=== PATIENT | female | born 1945 | race Caucasian/White ===

== ENCOUNTER 2018-10-09 15:29 | Outpatient (REF) | payer MEDICARE, BC, SELFPAY | END 2018-10-09 15:49 | LOC: NCHCN 15:29 | PROVIDERS: PCP Internal Medicine; Visit Provider Registered Nurse | DX: R82.90 Unspecified abnormal findings in urine (principal); R39.89 Other symptoms and signs involving the genitourinary system | CPT/HCPCS: 87077; 87086; 87186 ==

== ENCOUNTER 2020-04-15 18:13 | Outpatient (REF) | payer MEDICARE, BC, SELFPAY ==
[2020-04-15 20:39] LABS: Anion Gap 7.9 mmol/L (3-11); BUN 17 mg/dL (7-18); CO2 31.1 mmol/L (21.0-32.0); CREATININE 0.75 mg/dL (0.55-1.02); Calcium 8.8 mg/dL (8.5-10.1); Chloride 102 mmol/L (98-107); Glucose 100 mg/dL (74-106); Potassium 3.5 mmol/L (3.5-5.1); Sodium 141 mmol/L (136-145)
== END 2020-04-15 18:33 ==
LOC: NCHCN 18:13
PROVIDERS: PCP Internal Medicine; Visit Provider Internal Medicine
DX: I10 Essential (primary) hypertension (principal)
CPT/HCPCS: 80048

== ENCOUNTER 2020-12-02 14:54 | Outpatient (REF) | payer MEDICARE, BC, SELFPAY ==
[2020-12-02 20:56] LABS: Anion Gap 9.6 mmol/L (3-11); BUN 30 mg/dL (7-18); CO2 30.4 mmol/L (21.0-32.0); CREATININE 0.9 mg/dL (0.55-1.02); Calcium 9.2 mg/dL (8.5-10.1); Chloride 104 mmol/L (98-107); Glucose 133 mg/dL (74-106); Potassium 3.6 mmol/L (3.5-5.1); Sodium 144 mmol/L (136-145)
[2020-12-02 21:02] LABS: Hemoglobin A1C 6.8 % (<5.7)
== END 2020-12-02 14:55 | disposition home or self-care (01) ==
LOC: NCHCN 14:54
PROVIDERS: PCP Internal Medicine; Visit Provider Internal Medicine
DX: E11.9 Type 2 diabetes mellitus without complications (principal); I10 Essential (primary) hypertension
CPT/HCPCS: 80048; 83036

== ENCOUNTER 2020-12-09 16:47 | Outpatient (REF) | payer MEDICARE, BC, SELFPAY ==
[2020-12-09 20:59] LABS: COMMENT (LAB VIEW ONLY) 94.55 mg/dL
== END 2020-12-09 16:48 | disposition home or self-care (01) ==
LOC: NCHCN 16:47
PROVIDERS: PCP Internal Medicine; Visit Provider Internal Medicine
DX: E11.9 Type 2 diabetes mellitus without complications (principal); I10 Essential (primary) hypertension
CPT/HCPCS: 82043; 82570

== ENCOUNTER 2021-09-07 18:52 | Outpatient (REF) | payer MEDICARE, BC, SELFPAY ==
[2021-09-07 18:31] LABS: Abs Immature Grans 0.02 10^3/uL (0.0-0.06); Absolute Basophil Count 0.05 10^3/uL (0.0-0.2); Absolute Eosinophil Count 0.15 10^3/uL (0.0-0.7); Absolute Monocyte Count 0.52 10^3/uL (0.1-0.8); Absolute Neutrophil Count 4.14 10^3/uL (1.2-6.7); Basophils % 0.7; Eosinophils % 2.2; HCT 36.5 % (36.0-46.0); HGB 11.7 g/dL (11.2-15.7); Immature Grans % 0.3; Lymphocytes % 26.9; MCH 31.2 pg (27.0-33.0); MCHC 32.1 % (32.0-36.0); MCV 97.3 fL (80-95); MPV 10.2 fL (8.0-11.0); Monocytes % 7.8; Neutrophils % 62.1; Nucleated RBC 0 %; Platelet Count 349 10^3/uL (130-400); RBC 3.75 10^6/uL (3.93-5.22); RDW 12.8 % (11.7-14.6); RDW-SD 45.7 fL; WBC 6.68 10^3/uL (4.4-10.8)
[2021-09-07 18:54] LABS: ALT 24 U/L (14-59); AST 20 U/L (15-37); Albumin 3.5 g/dL (3.4-5.0); Alkaline Phosphatase 99 U/L (46-116); Anion Gap 4.3 mmol/L (3-11); BUN 25 mg/dL (7-18); Bilirubin, Total 0.4 mg/dL (0.2-1.0); CO2 33.7 mmol/L (21.0-32.0); CREATININE 0.8 mg/dL (0.55-1.02); Calcium 9.5 mg/dL (8.5-10.1); Chloride 106 mmol/L (98-107); Glucose 118 mg/dL (74-106); Potassium 3.8 mmol/L (3.5-5.1); Sodium 144 mmol/L (136-145); TSH (W/Ref FT4) 1.45 uIU/mL (0.36-3.74)
== END 2021-09-07 18:53 | disposition home or self-care (01) ==
LOC: LBN 18:52
PROVIDERS: PCP Internal Medicine; Visit Provider Internal Medicine
DX: R63.4 Abnormal weight loss (principal); R74.8 Abnormal levels of other serum enzymes; I10 Essential (primary) hypertension; E87.6 Hypokalemia
CPT/HCPCS: 80053; 84443; 85025

== ENCOUNTER 2023-02-01 08:08 | Outpatient (REF) | payer MEDICARE, BC, SELFPAY ==
--- OUTSIDE RECORDS SUMMARY | 2023-02-01 08:12 | XMS_ITS | CCD ---
Author Name Unknown Address [address] [place] [address] [phone] Organization Unknown Address [address] [place] [address] [phone] Care Team Providers Care Policy Specialist Name Role Phone RUTHIE THORNTON Attending Physician [phone] RUTHIE THORNTON Rounding (Secondary) Physician [phone] Vital Signs Unknown or Not Available. Allergies Allergy Code Allergy Type Reaction Status TAPE 0 Allergy to substance Acti ve No Known Drug Allergies 0 No known drug allergies Active Procedures Unknown or Not Available. History of Immunizations Unknown or Not Available. Problems Problem Code Start Date Resolved Date Status Closed humeral shaft fracture 38817627 Active Diabetes 2 64781176 Active HTN 33729343 Active Results Unknown or Not Available. Active Medications Unknown or Not Available. Medications Administered During Visit Unknown or Not Available. Encounters Encounter Diagnosis Diagnosis Code Start Date Abnormal findings on diagnos tic imaging of other specified body structures R9389 08/15/2021 Social History Smoking Status Code Start Date End Date Never smoker [id number] Patient Decision Aids Unknown or Not Available. Discharge Instructions You were admitted to [facility] on 08/15/2021 11:16 with a principal diagnosis of Abnormal findings on diagnostic imaging of other specified body structures You were discharged from [facility] on 08/15/2021 11:18 Should you have any questions prior to discharge, please contact a member of your healthcare team. If you have left the hospital and have any questions, please contact your primary care physician. Chief Complaint and Reason For Visit Unknown or Not Available. Function Status Unknown or Not Available. Plan of Care Unknown or Not Available. Referral/Transition of Care Unknown or Not Available.
--- OUTSIDE RECORDS SUMMARY | 2023-02-01 08:12 | XMS_ITS | CCD ---
Author Name Unknown Address [address] [place] [address] [phone] Organization Unknown Address [address] [place] [address] [phone] Care Team Providers Care Grades 1 Thru 5 Teacher Name Role Phone RUTHIE THORNTON Attending Physician [phone] Vital Signs Vital Sign Value Unit Date/Time Recent/Initial ? BP Systolic 162 mmHg 09/28/2021 12:34 Initial VS BP Diastolic 87 mmHg 09/28/2021 12:34 Initia l VS Respiratory Rate 16 bpm 09/28/2021 12:34 In itial VS Heart Rate 61 bpm 09/28/2021 12:34 Initial VS O2 % BldC Oximetry 94 % 09/28/2021 12:34 Initial VS Body Temperature 36.2 degrees 09/28/2021 12:34 In itial VS Allergies Allergy Code Allergy Type Reaction Status TAPE 0 Allergy to substance Acti ve No Known Drug Allergies 0 No known drug allergies Active Procedures Procedure Code Procedure Type Date Hysteroscopy, Surgical; w/En dometrial Bx &/Or Polypectomy w/wo D&C 59885 CPT 09/28/2021 Anesthesia, Vaginal Proc, w/ Bx; Hysteroscopy &/Or Hysterosalpingography 55076 CPT 09/28/2021 History of Immunizations Unknown or Not Available. Problems Problem Code Start Date Resolved Date Status Closed humeral shaft fracture 06335277 Active Diabetes 2 72947238 Active HTN 59434893 Active Results BASIC METABOLIC PANEL (BMP) - Collect Date/Time: 09/28/2021 09:24 Test Name Code Test Result Test Units Test Ref Rang e GLUCOSE 2345-7 130 mg/dL L=70 H=116 BUN 3094-0 18 mg/dL L=6 H=25 CREATININE 2160-0 0.77 mg/dL L=0.51 H=0.95 SODIUM SERUM 2951-2 140 mmol/L L=136 H=145 POTASSIUM SERUM 2823-3 3.8 mmol/L L=3.4 H=5 .2 CHLORIDE SERUM 2075-0 103 mmol/L L=96 H=110 CARBON DIOXIDE (CO2) 2028-9 31 mmol/L L=22 H=34 ANION GAP 38744-0 6.1 mmol/L CALCIUM SERUM 61234-6 8.9 mg/dL L=8.2 H=10. 2 AGE 76 years eGFR (non-Afr.Amer.) 43813-4 73 mL/min eGFR (Afr-Iraqi) 68080-9 89 mL/min GLUCOSE FINGER/HEEL CAPILLAR Y - Collect Date/Time: 09/28/2021 12:20 Test Name Code Test Result Test Units Test Ref Rang e GLUCOSE CAP 118 mg/dL L=70 H=116 Active Medications Medications Administered During Visit Unknown or Not Available. Encounters Encounter Diagnosis Diagnosis Code Start Date Polyp of corpus uteri N840 09/28/2021 Social History Smoking Status Code Start Date End Date Never smoker [id number] Patient Decision Aids Unknown or Not Available. Discharge Instructions You were admitted to [facility] on 09/28/2021 08:51 with a principal diagnosis of Polyp of corpus uteri You had the following procedures done:Hysteroscopy, Surgical; w/Endometrial Bx &/Or Polypectomy w/wo D&CAnesthesia, Vaginal Proc, w/Bx; Hysteroscopy &/Or Hysterosalpingography You had the following tests done:GLUCOSE FINGER/HEEL CAPILLARYBASIC METABOLIC PANEL (BMP) You were discharged from [facility] on 09/28/2021 14:03 Should you have any questions prior to discharge, please contact a member of your healthcare team. If you have left the hospital and have any questions, please contact your primary care physician. Chief Complaint and Reason For Visit Chief Complaint Date of Onset HYSTEROSCOPY AND D&C OP Function Status Unknown or Not Available. Plan of Care Unknown or Not Available. Referral/Transition of Care Unknown or Not Available.
--- OUTSIDE RECORDS SUMMARY | 2023-02-01 08:12 | XMS_ITS | CCD ---
Author Name Unknown Address [address] [place] [address] [phone] Organization Unknown Address [address] [place] [address] [phone] Care Team Providers Care Statistician Name Role Phone ELIZABETH PACHECO Attending Physician [phone] ELIZABETH PACHECO Rounding (Secondary) Physician [phone] Vital Signs Unknown or Not Available. Allergies Allergy Code Allergy Type Reaction Status TAPE 0 Allergy to substance Acti ve No Known Drug Allergies 0 No known drug allergies Active Procedures Unknown or Not Available. History of Immunizations Unknown or Not Available. Problems Problem Code Start Date Resolved Date Status Closed humeral shaft fracture 67797523 Active Diabetes 2 26500051 Active HTN 02682159 Active Results Unknown or Not Available. Active Medications Unknown or Not Available. Medications Administered During Visit Unknown or Not Available. Encounters Encounter Diagnosis Diagnosis Code Start Date Shoulder joint prosthesis present [id number] 03/20/2022 Social History Smoking Status Code Start Date End Date Never smoker 158036629 Patient Decision Aids Unknown or Not Available. Discharge Instructions You were admitted to [facility] on 03/20/2022 09:56 with a principal diagnosis of Presence of right artificial shoulder joint You were discharged from [facility] on 03/20/2022 00:00 Should you have any questions prior to [...]
--- OUTSIDE RECORDS SUMMARY | 2023-02-01 08:12 | XMS_ITS | CCD ---
Author Name Unknown Address [address] [place] [address] [phone] Organization Unknown Address [address] [place] [address] [phone] Care Team Providers Care Coat Tailor Name Role Phone RUTHIE THORNTON Attending Physician [phone] RUTHIE THORNTON Rounding (Secondary) Physician [phone] Vital Signs Unknown or Not Available. Allergies Allergy Code Allergy Type Reaction Status TAPE 0 Allergy to substance Acti ve No Known Drug Allergies 0 No known drug allergies Active Procedures Unknown or Not Available. History of Immunizations Unknown or Not Available. Problems Problem Code Start Date Resolved Date Status Closed humeral shaft fracture 60061537 Active Diabetes 2 20231530 Active HTN 70969303 Active Results Unknown or Not Available. Active Medications Unknown or Not Available. Medications Administered During Visit Unknown or Not Available. Encounters Encounter Diagnosis Diagnosis Code Start Date Imaging result abnormal [id number] 09/13/20 21 Social History Smoking Status Code Start Date End Date Never smoker 446505905 Patient Decision Aids Unknown or Not Available. Discharge Instructions You were admitted to [facility] on 09/13/2021 15:06 with a principal diagnosis of Abnormal findings on diagnostic imaging of other specified body structures You were discharged from [facility] on 09/13/2021 14:16 Should you have any questions prior to [...]
--- OUTSIDE RECORDS SUMMARY | 2023-02-01 08:12 | XMS_ITS | CCD ---
Author Name Unknown Address [address] [place] [address] [phone] Organization Unknown Address [address] [place] [address] [phone] Care Team Providers Care Typesetters Printer Name Role Phone RUTHIE THORNTON Attending Physician [phone] Vital Signs Unknown or Not Available. Allergies Allergy Code Allergy Type Reaction Status TAPE 0 Allergy to substance Acti ve No Known Drug Allergies 0 No known drug allergies Active Procedures Unknown or Not Available. History of Immunizations Unknown or Not Available. Problems Problem Code Start Date Resolved Date Status Closed humeral shaft fracture 51634391 Active Diabetes 2 65383858 Active HTN 19971547 Active Results JASMINA CRESPOZULMA RHEONIX* - Bakari ect Date/Time: 09/26/2021 16:27 Test Name Code Test Result Test Units Test Ref Rang e Tier- PRE-OP N/A SARS COV2 RNA: 94564-2 NEGATIVE N/A REFERENCE RANGE: NEGAT Active Medications Unknown or Not Available. Medications Administered During Visit Unknown or Not Available. Encounters Encounter Diagnosis Diagnosis Code Start Date Pre-surgery testing [id number] 09/26/2021 Social History Smoking Status Code Start Date End Date Never smoker 643768018 Patient Decision Aids Unknown or Not Available. Discharge Instructions You were admitted to [facility] on 09/26/2021 08:29 with a principal diagnosis of Encounter for preprocedural laboratory examination You had the following tests done:JASMINA COVID RHEONIX* You were discharged from [facility] on 09/26/2021 08:29 Should you have any questions prior to [...]
--- OUTSIDE RECORDS SUMMARY | 2023-02-01 08:13 | XMS_ITS | CCD ---
Author Name Unknown Address [address] [place] [address] [phone] Organization Unknown Address [address] [place] [address] [phone] Care Team Providers Care Medical Director Occupational Health Name Role Phone BECCA JOYNER Attending Physician [phone] Vital Signs Unknown or Not Available. Allergies Allergy Code Allergy Type Reaction Status TAPE 0 Allergy to substance Acti ve No Known Drug Allergies 0 No known drug allergies Active Procedures Unknown or Not Available. History of Immunizations Unknown or Not Available. Problems Problem Code Start Date Resolved Date Status Closed humeral shaft fracture 70163036 Active Diabetes 2 46926798 Active HTN 44926139 Active Results Unknown or Not Available. Active Medications Unknown or Not Available. Medications Administered During Visit Unknown or Not Available. Encounters Encounter Diagnosis Diagnosis Code Start Date Abnormal findings on diagnos tic imaging of other abdominal regions, including retroperitoneum R935 06/24/2021 Social History Smoking Status Code Start Date End Date Never smoker 171497315 Patient Decision Aids Unknown or Not Available. Discharge Instructions You were admitted to [facility] on 06/24/2021 08:05 with a principal diagnosis of Abnormal findings on diagnostic imaging of other abdominal regions, including retroperitoneum You were discharged from [facility] on 06/24/2021 08:05 Should you have any questions prior to [...]
--- OUTSIDE RECORDS SUMMARY | 2023-02-01 08:13 | XMS_ITS | CCD ---
Author Name Unknown Address [address] [place] [address] [phone] Organization Unknown Address [address] [place] [address] [phone] Care Team Providers Care Prosthodontist Name Role Phone BECCA JOYNER Attending Physician [phone] Vital Signs Unknown or Not Available. Allergies Allergy Code Allergy Type Reaction Status TAPE 0 Allergy to substance Acti ve No Known Drug Allergies 0 No known drug allergies Active Procedures Unknown or Not Available. History of Immunizations Unknown or Not Available. Problems Problem Code Start Date Resolved Date Status Closed humeral shaft fracture 25568321 Active Diabetes 2 81718104 Active HTN 27045186 Active Results Unknown or Not Available. Active Medications Unknown or Not Available. Medications Administered During Visit Unknown or Not Available. Encounters Encounter Diagnosis Diagnosis Code Start Date Encounter for screening mamm ogram for malignant neoplasm of breast Z1231 10/24/2022 Social History Smoking Status Code Start Date End Date Never smoker 797098773 Patient Decision Aids Unknown or Not Available. Discharge Instructions You were admitted to on 10/24/2022 08:20 with a principal diagnosis of Encounter for screening mammogram for malignant neoplasm of breast You were discharged from on 10/24/2022 08:20 Should you have any questions prior to discharge, please contact a member of your healthcare team. If you have left the hospital and have any questions, please contact your primary care physician. Chief Complaint and Reason For Visit Chief Complaint Date of Onset SCREENING Function Status Unknown or Not Available. Plan of Care Unknown or Not Available. Referral/Transition of Care Unknown or Not Available.
[2023-02-01 15:33] LABS: Hemoglobin A1C 6.9 % (<5.7)
[2023-02-01 15:38] LABS: Anion Gap 7.3 mmol/L (3-11); BUN 17 mg/dL (7-18); CO2 28.7 mmol/L (21.0-32.0); CREATININE 0.8 mg/dL (0.55-1.02); Calcium 8.6 mg/dL (8.5-10.1); Calculated LDL 117 mg/dL (<100); Chloride 107 mmol/L (98-107); Cholesterol 196 mg/dL (<200); Estimated GFR 76.79 (mL/min/1.73m2); Glucose 130 mg/dL (74-106); HDL Cholesterol 67 mg/dL (40-60); Potassium 3.5 mmol/L (3.5-5.1); Sodium 143 mmol/L (136-145); Triglyceride 61 mg/dL (<150)
== END 2023-02-01 08:09 | disposition home or self-care (01) ==
LOC: NCHCN 08:08
PROVIDERS: PCP Internal Medicine; Visit Provider Internal Medicine
DX: E11.9 Type 2 diabetes mellitus without complications (principal); I10 Essential (primary) hypertension; M85.88 Other specified disorders of bone density and structure, other site; E78.5 Hyperlipidemia, unspecified
CPT/HCPCS: 80048; 80061; 83036

== ENCOUNTER 2023-06-08 16:28 | Outpatient (REF) | payer MEDICARE, BC, SELFPAY ==
[2023-06-08 21:59] LABS: COMMENT (LAB VIEW ONLY) 32.11 mg/dL; Microalb ug/mg Crea 32.1 ug/mg Cr
== END 2023-06-08 16:29 | disposition home or self-care (01) ==
LOC: NCHCN 16:28
PROVIDERS: PCP Internal Medicine; Visit Provider Internal Medicine
DX: E11.9 Type 2 diabetes mellitus without complications (principal)
CPT/HCPCS: 82043; 82570

== ENCOUNTER 2024-04-14 15:06 | Outpatient (REF) | payer MEDICARE, BC, SELFPAY ==
[2024-04-14 15:06] LABS: HCT 42.5 % (36.0-46.0); HGB 13.6 g/dL (11.2-15.7); MCH 31.8 pg (27.0-33.0); MCV 99 fL (80-95); MPV 9.8 fL (8.0-11.0); Platelet Count 268 10^3/uL (130-400); RBC 4.28 10^6/uL (3.93-5.22); RDW 12.6 % (11.7-14.6); RDW-SD 46.4 fL; WBC 5.94 10^3/uL (4.4-10.8)
[2024-04-14 15:52] LABS: Hemoglobin A1C 6.6 % (<5.7)
[2024-04-14 16:06] LABS: ALT 26 U/L (14-59); AST 25 U/L (15-37); Albumin 3.3 g/dL (3.4-5.0); Alkaline Phosphatase 87 U/L (46-116); Anion Gap 5.2 mmol/L (3-11); BUN 23 mg/dL (7-18); Bilirubin, Total 0.54 mg/dL (0.2-1.0); CO2 33.8 mmol/L (21.0-32.0); CREATININE 0.9 mg/dL (0.55-1.02); Calcium 8.9 mg/dL (8.5-10.1); Calculated LDL 119 mg/dL (<100); Chloride 106 mmol/L (98-107); Cholesterol 198 mg/dL (<200); Estimated GFR 66.26 (mL/min/1.73m2); Glucose 120 mg/dL (74-106); HDL Cholesterol 67 mg/dL (40-60); Potassium 3.8 mmol/L (3.5-5.1); Sodium 145 mmol/L (136-145); Total Protein 7.3 g/dL (6.4-8.2); Triglyceride 62 mg/dL (<150); Vitamin B12 1296 pg/mL (193-986); Vitamin D 25 Total 31.8 ng/mL (30-100)
== END 2024-04-14 15:07 | disposition home or self-care (01) ==
LOC: NCHCN 15:06
PROVIDERS: PCP Internal Medicine; Visit Provider Internal Medicine
DX: E11.9 Type 2 diabetes mellitus without complications (principal); M81.0 Age-related osteoporosis without current pathological fracture; I10 Essential (primary) hypertension; E78.5 Hyperlipidemia, unspecified; G60.3 Idiopathic progressive neuropathy
CPT/HCPCS: 80053; 80061; 82306; 85027; 82607; 83036

== ENCOUNTER 2024-07-25 22:38 | Outpatient (REF) | payer MEDICARE, BC, SELFPAY ==
[2024-07-25 22:05] LABS: COMMENT (LAB VIEW ONLY) 82.54 mg/dL; Microalb ug/mg Crea 11.4 ug/mg Cr
== END 2024-07-25 22:39 | disposition home or self-care (01) ==
LOC: NCHCN 22:38
PROVIDERS: Visit Provider Internal Medicine
DX: E11.9 Type 2 diabetes mellitus without complications (principal)
CPT/HCPCS: 82043; 82570

== ENCOUNTER 2024-10-13 12:29 | Outpatient (REF) | payer MEDICARE, BC, SELFPAY ==
[2024-10-13 15:16] LABS: Anion Gap 5.4 mmol/L (3-11); BUN 24 mg/dL (7-18); CO2 32.6 mmol/L (21.0-32.0); CREATININE 0.8 mg/dL (0.55-1.02); Calcium 9.3 mg/dL (8.5-10.1); Chloride 108 mmol/L (98-107); Estimated GFR 75.84 (mL/min/1.73m2); Glucose 122 mg/dL (74-106); Potassium 4.2 mmol/L (3.5-5.1); Sodium 146 mmol/L (136-145)
== END 2024-10-13 12:30 | disposition home or self-care (01) ==
LOC: NCHCN 12:29
PROVIDERS: PCP Internal Medicine; Visit Provider Internal Medicine
DX: I10 Essential (primary) hypertension (principal)
CPT/HCPCS: 80048

== ENCOUNTER 2025-01-07 12:38 | Outpatient (REF) | payer MEDICARE, BC, SELFPAY ==
[2025-01-07 14:53] LABS: Anion Gap 3.6 mmol/L (3-11); BUN 15 mg/dL (7-18); CO2 36.4 mmol/L (21.0-32.0); CREATININE 0.8 mg/dL (0.55-1.02); Calcium 9.1 mg/dL (8.5-10.1); Chloride 106 mmol/L (98-107); Estimated GFR 75.84 (mL/min/1.73m2); Glucose 180 mg/dL (74-106); Sodium 146 mmol/L (136-145)
== END 2025-01-07 12:39 | disposition home or self-care (01) ==
LOC: NCHCN 12:38
PROVIDERS: PCP Internal Medicine; Visit Provider Internal Medicine
DX: I10 Essential (primary) hypertension (principal)
CPT/HCPCS: 80048

== ENCOUNTER 2025-02-02 12:03 | Outpatient (REF) | payer MEDICARE, BC, SELFPAY ==
[2025-02-02 16:04] LABS: Anion Gap 6.3 mmol/L (3-11); BUN 19 mg/dL (7-18); CO2 32.7 mmol/L (21.0-32.0); CREATININE 0.8 mg/dL (0.55-1.02); Calcium 9.2 mg/dL (8.5-10.1); Chloride 104 mmol/L (98-107); Estimated GFR 75.84 (mL/min/1.73m2); Glucose 145 mg/dL (74-106); Potassium 3.5 mmol/L (3.5-5.1); Sodium 143 mmol/L (136-145)
== END 2025-02-02 12:04 | disposition home or self-care (01) ==
LOC: NCHCN 12:03
PROVIDERS: PCP Internal Medicine; Visit Provider Internal Medicine
DX: I10 Essential (primary) hypertension (principal)
CPT/HCPCS: 80048

== ENCOUNTER 2025-03-06 15:01 | Outpatient (REF) | payer MEDICARE, BC, SELFPAY ==
[2025-03-06 21:52] LABS: Anion Gap 5.1 mmol/L (3-11); BUN 20 mg/dL (7-18); CO2 30.9 mmol/L (21.0-32.0); CREATININE 0.9 mg/dL (0.55-1.02); Calcium 8.8 mg/dL (8.5-10.1); Chloride 105 mmol/L (98-107); Estimated GFR 65.84 (mL/min/1.73m2); Glucose 145 mg/dL (74-106); Potassium 4.2 mmol/L (3.5-5.1); Sodium 141 mmol/L (136-145)
== END 2025-03-06 15:02 | disposition home or self-care (01) ==
LOC: NCHCN 15:01
PROVIDERS: PCP Internal Medicine; Visit Provider Internal Medicine
DX: I10 Essential (primary) hypertension (principal)
CPT/HCPCS: 80048